=== PATIENT | female | born 1985 ===

== ENCOUNTER 2017-10-05 11:00 | Emergency (ER) | payer SELFPAY ==
[2017-10-05 11:01] VITALS: BMI 30.7
[2017-10-05] MEDS ORDERED: Sodium Chloride 0.9% 1,000 ML IV ONE (14:15)
[2017-10-05 14:28] LABS: BASO % 0.3 % (0.0-2.0); HEMOGLOBIN 13.4 g/dL (11.0-16.0); LYMPH # 1.1 K/uL (1.0-4.3); LYMPH % 12.5 % (20.0-40.0); MEAN CELL VOLUME 84.8 fL (81.0-99.0); MEAN CORPUSCULAR HGB CONC 34.2 g/dL (33.0-37.0); MEAN PLATELET VOLUME 8.2 fL (7.2-11.7); MONO # 0.7 K/uL (0.0-0.8); MONO % 7.8 % (0.0-10.0); NEUT # 5.8 K/uL (1.8-7.0); NEUT % 67.4 % (50.0-75.0); RBC 4.62 Mil/uL (3.80-5.20); RED CELL DISTRIBUTION WIDTH 15.6 % (11.5-14.5); WHITE BLOOD COUNT 8.6 K/uL (4.8-10.8)
--- NOTE | 2017-10-05 14:29 | C.PDOC ---
History Of Present Illness 32 y/o male presents to the ER complaining of upper abdominal pain which has been present for the past 8 days. Patient reports that she also has nausea, vomiting, and 1 episode of diarrhea. Patient does not have any other complaints. Time Seen by Provider: 10/05/17 14:10 Chief Complaint (Nursing): Abdominal Pain History Per: Patient History/Exam Limitations: no limitations Onset/Duration Of Symptoms: Days Current Symptoms Are (Timing): Still Present Severity: Moderate Associated Symptoms: Nausea, Vomiting, Diarrhea Past Medical History Reviewed: Historical Data, Nursing Documentation, Vital Signs Vital Signs: Last Vital Signs Temp 98.7 F 10/05/17 11:36 Pulse 89 10/05/17 11:36 Resp 18 10/05/17 11:36 BP 117/74 10/05/17 11:36 Pulse Ox 100 10/05/17 16:01 - Medical History PMH: No Chronic Diseases Surgical History: No Surg Hx Family History: States: No Known Family Hx - Social History Hx Tobacco Use: No Hx Alcohol Use: No Hx Substance Use: No - Immunization History Hx Tetanus Toxoid Vaccination: No Hx Influenza Vaccination: No Hx Pneumococcal Vaccination: No Review Of Systems Except As Marked, All Systems Reviewed And Found Negative. Constitutional: Negative for: Fever, Chills ENT: Negative for: Nose Congestion, Throat Pain Gastrointestinal: Positive for: Nausea, Vomiting, Abdominal Pain, Diarrhea (1 episode of diarrhea) Physical Exam - Physical Exam Appears: Non-toxic, No Acute Distress, Other (Patient is talking on phone) Skin: Normal Color, Warm Head: Atraumatic, Normacephalic Eye(s): bilateral: Normal Inspection, PERRL Nose: Normal Oral Mucosa: Moist Neck: Supple Chest: Symmetrical Cardiovascular: Rhythm Regular Respiratory: Normal Breath Sounds, No Accessory Muscle Use, No Rales, No Rhonchi , No Wheezing Gastrointestinal/Abdominal: Normal Exam, Soft, Tenderness (epigastric tenderness ), No Guarding, No Rebound Extremity: Normal ROM Neurological/Psych: Oriented x3, Normal Speech, Normal Cognition, Normal Motor, Normal Sensation ED Course And Treatment - Laboratory Results Result Diagrams: 10/05/17 14:25 10/05/17 14:25 O2 Sat by Pulse Oximetry: 100 (RA) Pulse Ox Interpretation: Normal Medical Decision Making Medical Decision Making: Impression: Upper Abdominal Pain consider gastritis pancreatitis pud. - labs pending. Plan: --Labs --Urinalysis pt reassesed. pain improve.d abd soft. no ruq ttp, pt asking for dc Disposition - Disposition Referrals: Prashanth Sancehz MD [Staff Provider] - Disposition: HOME/ ROUTINE Disposition Time: 16:02 Condition: STABLE Additional Instructions: please follow up with your doctor. return to er with worsening symptoms or concerns. Prescriptions: Famotidine [Pepcid] 20 mg PO DAILY #20 tab Instructions: Acute Abdominal Pain (ED) Forms: [employer] ([place]) - Clinical Impression Clinical Impression: Abdominal pain - Scribe Statement The provider has reviewed the documentation as recorded by the Scribe Kurtis Varela Provider Attestation: All medical record entries made by the Scribe were at my direction and personally dictated by me. I have reviewed the chart and agree that the record accurately reflects my personal performance of the history, physical exam, medical decision making, and the department course for this patient. I have also personally directed, reviewed, and agree with the discharge instructions and disposition.
[2017-10-05 14:32] LABS: HCG,QUALITATIVE URINE NEGATIVE (NEGATIVE)
[2017-10-05 14:34] LABS: SQUAMOUS EPITHIAL 1 /hpf (0-5); URINE BILIRUBIN NEGATIVE (NEGATIVE); URINE BLOOD NEGATIVE (NEGATIVE); URINE CLARITY Clear (Clear); URINE COLOR Yellow (YELLOW); URINE GLUCOSE (UA) NORMAL (Normal); URINE LEUKOCYTE ESTERASE 1+ Leu/uL (Negative); URINE NITRATE NEGATIVE (NEGATIVE); URINE PROTEIN NEGATIVE (NEGATIVE)
[2017-10-05 14:50] LABS: INR 1.3; PROTHROMBIN TIME 15.1 SECONDS (9.7-12.2)
[2017-10-05 14:51] LABS: ALB/GLOB RATIO 1.3 (1.0-2.1); ALBUMIN 4.3 g/dL (3.5-5.0); ALT/SGPT 70 U/L (9-52); AST/SGOT 52 U/L (14-36); BLOOD UREA NITROGEN 8 mg/dL (7-17); CALCIUM 8.8 mg/dl (8.6-10.4); GFR AFRICAN-AMERICAN > 60; GFR NON-AFRICAN AMERICAN > 60; LIPASE 25 U/L (23-300)
[2017-10-05 14:56] LABS: BILIRUBIN,DIRECT 0.4 mg/dL (0.0-0.4)
[2017-10-05 16:34] VITALS: BP 115/72; PULSE 82; RESP 19; TEMP 98; O2SAT 99
== END 2017-10-05 16:33 | disposition home or self-care (01) ==
LOC: C.ER 11:00
DX: R10.9 Unspecified abdominal pain (principal)
CPT/HCPCS: 80053; 81001; 82248; 83690; 84703; 85025; 85610; 85730; 96361; 96374; 96375; 99283; C9113; J2405; J7040